=== PATIENT | female | born 1980 | race Caucasian/White ===

== ENCOUNTER 2016-12-17 12:12 | Emergency (ER) | payer BC ==
[2016-12-17 12:34] VITALS: BP 129/88
[2016-12-17] MEDS ORDERED: Acetaminophen TAB* 325 MG PO ONE (12:40)
--- NOTE | 2016-12-17 13:15 | UC ---
Isidoro Rodriguez Angela, scribed for Destinee Crowell MD on 12/17/16 at 1300 . Ear Complaint HPI - HPI Summary HPI Summary: This pt is a 36 y/o female presenting to [facility] c/o right ear drainage and pain x2 days. Pt reports a drainage of green material from the right ear. She notes there is decreased hearing from the right ear. Pt states she gets this ear drainage and pain every year due to allergies. Pt has used oil of oregano and vinegar to treat her ear infection. She additionally c/o rhinorrhea, itchy eyes. She took advil yesterday and took tylenol today with some relief. Pt denies cough, sore throat, headache, SOB. - History of Current Complaint Chief Complaint: UCEar Stated Complaint: EAR INFECTION Time Seen by Provider: 12/17/16 12:40 Hx Obtained From: Patient Hx Last Menstrual Period: Periguard-sporadic menstrual cycles Onset/Duration: Lasting Days Aggravating Factors: Nothing Alleviating Factors: OTC Meds - tylenol, advil Associated Signs/Symptoms: Positive: Discharge Related History: Seasonal Allergies - Allergies/Home Medications Allergies/Adverse Reactions: Allergies Allergy/AdvReac Type Severity Reaction Status Date / Time Ciprofloxacin [From Cipro] Allergy Hives Verified 07/18/13 16:27 Home Medications: Home Medications Iud 12/17/16 [History] PMH/Surg Hx/FS Hx/Imm Hx - Additional Past Medical History Additional PMH: PMHx: ear infections every year environmental allergies Previously Healthy: Yes Other Endocrine History: DENIES: Diabetes - Surgical History Surgical History: None - Family History Known Family History: Positive: Hypertension, Other - high cholesterol. Pt's parents are living and doing well - Social History Occupation: Employed Full-time Lives: With Family Alcohol Use: None Substance Use Type: None Smoking Status (MU): Never Smoked Tobacco Review of Systems Constitutional: Negative Skin: Negative Eyes: Other - itchy eyes ENT: Ear Ache, Nasal Discharge, Other - ear drainage Respiratory: Negative Cardiovascular: Negative Gastrointestinal: Negative Genitourinary: Negative Motor: Negative Neurovascular: Negative Musculoskeletal: Negative Neurological: Negative Psychological: Negative All Other Systems Reviewed And Are Negative: Yes Physical Exam Triage Information Reviewed: Yes Appearance: Well-Appearing, Pain Distress - mild Vital Signs: Initial Vital Signs Temp 98.2 F 12/17/16 12:29 Pulse 80 12/17/16 12:29 Resp 18 12/17/16 12:29 BP 129/88 12/17/16 12:29 Pulse Ox 100 12/17/16 12:29 Vital Signs Reviewed: Yes Eyes: Positive: Conjunctiva Clear ENT: Positive: Pharynx normal, Other: - right canal with edema, discharge. No pre- or post auricular adenopathy or tenderness. Dental Exam: Normal Neck: Positive: Supple, Nontender, No Lymphadenopathy Respiratory: Positive: Lungs clear, Normal breath sounds Cardiovascular: Positive: RRR, No Murmur Neurological Exam: Normal Psychological Exam: Normal Skin Exam: Normal Ear Complaint Course/Dx - Course Course Of Treatment: cephalexin and ear drops for otitis externa. Discussed prevention. - Differential Dx/Diagnosis Differential Diagnosis/HQI/PQRI: Cellulitis, Otitis Externa, Otitis Media Provider Diagnoses: otitis externa Discharge - Discharge Plan Condition: Stable Disposition: HOME Prescriptions: Cephalexin CAP* [Keflex 500 CAP*] 500 mg PO TID #15 cap Neomyc/Polym/HC 1% OTIC SUSP* [Cortisporin Otic Susp 1%*] 4 drop RIGHT EAR QID # 1 btl Patient Education Materials: Otitis Externa (ED) Additional Instructions: To prevent recurring external canal infections: stop use of Q-tips, To clean your ears--you can use a 50% dilution of peroxide in water and put 5 or 6 drops into the ear canals after using oil drops the night before. This should help to gently remove wax. You can use a diluted vinegar solution as an antispetic. To decrease allergy symptoms: Use loratidine 10mg once daily to help with runny nose and sneezing. This does not cause sedation. The documentation as recorded by the Isidoro pierre Angela accurately reflects the service I personally performed and the decisions made by me, Destinee Crowell MD.
== END 2016-12-17 13:25 | disposition home or self-care (01) ==
LOC: UCEAST 12:12
DX: H60.91 Unspecified otitis externa, right ear (principal); J34.89 Other specified disorders of nose and nasal sinuses; H57.8 Other specified disorders of eye and adnexa; Z88.1 Allergy status to other antibiotic agents
CPT/HCPCS: 99212; A9270-GY; G0463